=== PATIENT | female | born 2000 | race Caucasian/White ===

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

== ENCOUNTER 2025-02-23 12:18 | Outpatient (CLI) | payer OTHER ==
[~2025-02-23 12:18] MED LIST: PREVACID15 M1 PO
[2025-02-23 13:26] LABS: COVID-19 AG NEGATIVE (NEGATIVE)
== END 2025-02-23 12:19 | disposition home or self-care (01) ==
LOC: LAB 12:18
PROVIDERS: ATTEND Preventive Medicine Occupational Medicine
DX: Z20.828 Contact with and (suspected) exposure to other viral communicable diseases (principal); J11.1 Influenza due to unidentified influenza virus with other respiratory manifestations